=== PATIENT | female | born 1960 | race Caucasian/White ===

== ENCOUNTER 2020-02-11 14:10 | Emergency (ER) | payer OTHER ==
[~2020-02-11] VITALS: Ht 167.6 cm; Wt 109.0 kg
[2020-02-11 14:20] VITALS: BP 125/82
[2020-02-11] MEDS ORDERED: METH4TAB2 PO (14:43)
[2020-02-11] MEDS ORDERED: TRAM50TA PO (14:43)
--- NOTE | 2020-02-11 14:44 | PHYS DOC ---
General Adult EDM: Chief Complaint: BACK PAIN OR INJURY HPI: HPI: Patient is a 59 year old female who presents with low back pain that is chronic and she works at [employer] and has to do heavy lifting. She states the other day she lifted a big 24 pack of pop at [employer] and twisted and then she began having right low back pain that is spasming. She denies radiation of the pain. She rates a 8 out of 10. She states she just laid around yesterday and took a half of a cyclobenzaprine because it knocks her out. Review of Systems: Review of Systems: Musculoskeletal: Left low back pain or joint pain. [] Heart Score: Risk Factors: Risk Factors: DM, Current or recent (<one month) smoker, HTN, HLP, family history of CAD, obesity. Risk Scores: Score 0 - 3: 2.5% MACE over next 6 weeks - Discharge Home Score 4 - 6: 20.3% MACE over next 6 weeks - Admit for Clinical Observation Score 7 - 10: 72.7% MACE over next 6 weeks - Early Invasive Strategies Allergies: Allergies: Allergies Coded Allergies Type Severity Reaction Last Updated Verified codeine Allergy Intermediate Unknown 02/11/20 Yes Physical Exam: PE: Constitutional: Well developed, well nourished, no acute distress, non-toxic appearance. [] HENT: Normocephalic, atraumatic, bilateral external ears normal, oropharynx moist, no oral exudates, nose normal. [] Eyes: PERRLA, EOMI, conjunctiva normal, no discharge. [] Neck: Normal range of motion, no tenderness, supple, no stridor. [] Cardiovascular:Heart rate regular rhythm, no murmur [] Lungs & Thorax: Bilateral breath sounds clear to auscultation [] Abdomen: Bowel sounds normal, soft, no tenderness, no masses, no pulsatile masses. [] Skin: Warm, dry, no erythema, no rash. [] Back: Left low back tenderness, no CVA tenderness. [] Extremities: No tenderness, no cyanosis, no clubbing, ROM intact, no edema. [] Neurologic: Alert and oriented X 3, normal motor function, normal sensory function, no focal deficits noted. [] Psychologic: Affect normal, judgement normal, mood normal. [] EKG: EKG: [] Radiology/Procedures: Radiology/Procedures: [] Course & Med Decision Making: Course & Med Decision Making Pertinent Labs and Imaging studies reviewed. (See chart for details) Alert and oriented. Speaks in full clear sentences. Slight tenderness to the left lower back with palpation. No flank pain. She denies any dysuria or fever. She states is just spasming. Denies any saddle paresthesia. Denies incontinence. Ambulatory but slightly limping due to pain on the left side. Moves all extremities equally and normally. Patient states that she has strained her low back before in the past. Patient states she also has bad knees. No focal spiny tenderness. Pain worse with movement. [] Dragon Disclaimer: Dragon Disclaimer: This electronic medical record was generated, in whole or in part, using a voice recognition dictation system. Departure Departure Impression: Primary Impression: Low back strain Qualified Codes: S39.012A - Strain of muscle, fascia and tendon of lower back, initial encounter Disposition: HOME, SELF-CARE Condition: STABLE Patient Instructions: Low Back Sprain with [facility] Additional Instructions: Follow-up with your primary care provider. Take medications as prescribed and do not drive or drink alcohol while you are on these medications as they are make you sleepy. Continue taking your muscle relaxer that you have at home. Try using a heating pad. Scripts Methylprednisolone (MEDROL) 4 Mg Tab.ds.pk 1 PKG PO UD, #1 PKG Prov: MELISSA BELTRÁN APRN 02/11/20 Tramadol Hcl (TRAMADOL HCL) 50 Mg Tablet 50 MG PO Q6HRS PRN for PAIN, #10 TAB Prov: MELISSA BELTRÁN APRN 02/11/20 Justicifation of Admission Dx: Justifications for Admission: Justification of Admission Dx: N/A MELISSA BELTRÁN APRN Feb 11, 2020 14:44
== END 2020-02-11 14:55 | disposition home or self-care (01) ==
LOC: ER 14:10
DX: S39.012A Strain of muscle, fascia and tendon of lower back, initial encounter (principal); G89.29 Other chronic pain; Z88.5 Allergy status to narcotic agent; X50.0XXA Overexertion from strenuous movement or load, initial encounter; Y93.89 Activity, other specified; Y92.89 Other specified places as the place of occurrence of the external cause; Y99.8 Other external cause status
CPT/HCPCS: 99283